=== PATIENT | male | born 1975 | race Caucasian/White ===

== ENCOUNTER 2020-08-04 11:40 | Emergency (ER) | payer OTHER ==
[~2020-08-04] VITALS: Ht 188 cm; Wt 164.3 kg
--- NOTE | 2020-08-04 11:59 | NUR ---
PROVIDER AT BEDSIDE FOR ASSESSMENT. PT C/O "NOT FEELING TOO HOT" SINCE THIS MORNING. STATES HE FELT HIS HR TOO HIGH SO HE BEGAN TAKING IT AND "IT FELT HIGH". STATES HE HAD A BP MONITOR AT HOME SO DECIDED TO TAKE HIS BP AND IT WAS "HIGH". CURRENT BP 171/114. HR 90. STATES NO PAIN AT THIS TIME. WILL CONTINUE TO MONITOR
[2020-08-04] MEDS ORDERED: LABETALOL 5MG/ML, 20ML ONE (12:17)
[2020-08-04 12:20] LABS: BASOPHILS % (AUTO) 1 % (0-1); EOSINOPHILS % (AUTO) 2 % (1-7); LYMPHOCYTES % (AUTO) 25 % (22-44); MEAN CORPUSCULAR HEMOGLOBIN 32.1 pg (27.5-34.5); MEAN CORPUSCULAR HGB CONC 35.2 g/dL (33.2-36.2); MEAN PLATELET VOLUME 9.3 fL (7.4-10.4); MONOCYTES % (AUTO) 11 % (2-9); NEUTROPHILS % (AUTO) 62 % (42-75); PLATELET COUNT 181 x10^3/uL (130-400); RED BLOOD COUNT 5.74 x10^6/uL (4.38-5.82); RED CELL DISTRIBUTION WIDTH 13.4 % (9.4-14.8)
[2020-08-04 12:23] LABS: MD NO
[2020-08-04] MEDS ORDERED: SODIUM CHLORIDE FLUSH 10ML SYR IVF ONE (12:30)
[2020-08-04] MEDS ORDERED: LABETALOL 5MG/ML, 20ML IVPush ONE (12:30)
--- NOTE | 2020-08-04 12:30 | NUR ---
AT BEDSIDE. IV ACCESS OBTAINED. ORDERED MEDICATIONS ADMIN. NO C/O PAIN AT THIS TIME. WILL CONTINUE TO MONITOR
[2020-08-04 12:32] LABS: ALANINE AMINOTRANSFERASE 117 U/L (12-78); ALBUMIN 3.6 g/dL (3.4-5.0); ANION GAP 4 mmol/L (5-15); CALCIUM 8.6 mg/dL (8.5-10.1); CHLORIDE 112 mmol/L (98-107); CREATININE 1.31 mg/dL (0.7-1.3)
[2020-08-04 12:43] LABS: ALKALINE PHOSPHATASE 69 U/L (45-117); BILIRUBIN,TOTAL 0.6 mg/dL (0.2-1.0); TROPONIN I < 0.015 ng/mL (0.000-0.045)
--- NOTE | 2020-08-04 13:00 | NUR ---
PT RESTING ON GURNEY. MONITOR BP. NAD. STATES NO PAIN. STATES NO ADDITIONAL NEEDS AT THIS TIME
[2020-08-04 13:04] LABS: CHOL/HDL RATIO 6.3; LDL/HDL RATIO 3.8 (0.5-3.0)
[2020-08-04] MEDS ORDERED: ENALAPRILAT 1.25 MG/ML, 2ML IV ONE (13:30)
--- NOTE | 2020-08-04 13:58 | NUR ---
PT RESTING ON GURNEY. AWAITING VASOTEC FROM PHARMACY. SPOKE TO PHARMACIST DAVID. STATES HE IS SENDING MEDICATION. VSS. NAD. WILL CONTINUE TO MONITOR
[2020-08-04] MEDS ORDERED: LISINOPRIL 20 MG TABLET PO ONE (14:00)
[2020-08-04] MEDS ORDERED: LISINOPRIL 20 MG TABLET ONE (14:09)
[2020-08-04 14:11] VITALS: BP 165/85
--- NOTE | 2020-08-04 14:23 | NUR ---
DISCHARGE INSTRUCTIONS EXPLAINED TO PT. RX GIVEN TO PT. PT VERBALIZED UNDERSTANDING. IV REMOVED WITH TIP INTACT. PT AMBULATED TO DISCHARGE DESK WITH ALL BELONGINGS W/O INCIDENT
== END 2020-08-04 14:24 | disposition home or self-care (01) ==
LOC: ED 13:21
DX: E88.81 Metabolic syndrome and other insulin resistance (principal); I10 Essential (primary) hypertension; I49.3 Ventricular premature depolarization; I45.10 Unspecified right bundle-branch block; I44.4 Left anterior fascicular block
CPT/HCPCS: 36415; 71045; 80053; 80061; 83036; 83735; 83880; 84443; 84484; 85025; 85379; 93005; 96374; 99285

== ENCOUNTER → 2020-09-12 | Outpatient (CLI) | payer OTHER | END | disposition home or self-care (01) | LOC: CVU 15:40 | PROVIDERS: ATTEND Internal Medicine Cardiovascular Disease | DX: I11.9 Hypertensive heart disease without heart failure (principal); Z87.891 Personal history of nicotine dependence | CPT/HCPCS: 93306 ==